=== PATIENT | male | born 1985 | race Two or more races ===

== ENCOUNTER 2020-08-20 00:08 | Emergency (ER) | payer OTHER ==
[~2020-08-20] VITALS: Ht 182.9 cm; Wt 124.7 kg
[2020-08-20 00:22] VITALS: BP 144/98
[2020-08-20] MEDS ORDERED: PRED50TA PO (00:42)
[2020-08-20] MEDS ORDERED: CARISOPRODOL 350 MG TABLET ONE (00:56)
[2020-08-20] MEDS ORDERED: DEXAMETHASONE SOD PHOSPHATE 10 MG/ML VIAL ONE (00:56)
[2020-08-20] MEDS ORDERED: HYDROMORPHONE 1 MG/1 ML DISP.SYRIN ONE (00:58)
[2020-08-20] MEDS: CARISOPRODOL 350 MG TABLET PO ONE (01:05)
[2020-08-20] MEDS: HYDROMORPHONE 1 MG/1 ML DISP.SYRIN IM ONE (01:05)
[2020-08-20] MEDS: DEXAMETHASONE SOD PHOSPHATE 4 MG/ML VIAL IM ONE (01:05)
== END 2020-08-20 02:27 | disposition home or self-care (01) ==
LOC: ER 00:10
DX: M54.41 Lumbago with sciatica, right side (principal)
CPT/HCPCS: 96372 ×2; 99284; J1100; J1170